=== PATIENT | female | born 1955 | race Caucasian/White ===

== ENCOUNTER 2016-08-29 19:54 | Emergency (ER) | payer OTHER ==
[~2016-08-29] VITALS: Ht 154.9 cm; Wt 111.0 kg
[~2016-08-29 19:54] MED LIST: ABILIFY5 MG PO; DUONEB 2.5-0.5 M3 ML AEROSOL; LAMISIL AT12 GM TP; LEVOFLOXACIN500 MG PO; METOPROLOL SUC100 MG PO; NICOTINE PATCH1 EAC2 TD; PREDNISONE10 MG PO; PREDNISONE20 MG PO; SEROQUEL XR150 MG PO; VENLAFAXINE HCL75 M3 PO; ZOLPIDEM TARTRA10 MG PO
[2016-08-29 20:45] LABS: HEMATOCRIT 36.5 % (36.0-46.0); MCH 33.9 PG (29.0-34.0); MCHC 34.2 G/DL (30.0-36.0); MCV 98.9 FL (83-99); MEAN PLAT.VOLUME 10.2 uM^3 (9.5-12.4); PLATELET COUNT 159 K/uL (156-360); RBC DIS.WIDTH-CV 12.7 % (11.8-14.6); RBC DIS.WIDTH-SD 45.3 % (39-53); RED BLOOD COUNT 3.69 M/uL (3.80-5.20); WHITE BLOOD COUNT 10.3 K/uL (4.1-10.2)
[2016-08-29 20:56] LABS: CHLORIDE 108 mEq/L (99-109); POTASSIUM 3.4 mEq/L (3.7-5.4); SODIUM 139 mEq/L (136-147)
[2016-08-29 20:58] LABS: GLUCOSE 100 mg/dL (70-99)
[2016-08-29 21:00] LABS: ANION GAP 7 MEQ/L (2-14)
[2016-08-29 21:02] LABS: GFR ESTIMATE (CALCULATED) 44 mL/min/
[2016-08-29 21:03] LABS: UREA NITROGEN (BUN) 24 mg/dL (9-23)
[2016-08-29 21:58] LABS: ADD MIUA? YES; BILIRUBIN NEGATIVE; BLOOD NEGATIVE; COLOR YELLOW ((YELLOW)); GLUCOSE (STRIP) NEGATIVE; KETONES NEGATIVE; LEUKOCYTES LARGE; NITRITE NEGATIVE; PROTEIN (STRIP) 30; SPECIFIC GRAVITY 1.029 (1.000-1.030); UROBILINOGEN 0.2 MG/DL (0.2-1.0)
[2016-08-29 22:07] LABS: BACTERIA RARE /HPF; EPITHELIAL CELLS 2+ /HPF; HYALINE CASTS 0-5 /LPF; MUCUS TRACE /LPF; UCUL ADDED? NO; WHITE BLOOD CELLS 20-30 /HPF (0-5)
[2016-08-29] MEDS ORDERED: CLEOCIN300 MG PO ×2 (22:10→22:37)
[2016-08-29 22:19] VITALS: BP 106/68
== END 2016-08-29 22:41 | disposition home or self-care (01) ==
LOC: EME 19:54
PROVIDERS: Emergency Medicine
DX: L03.211 Cellulitis of face (principal)
CPT/HCPCS: 70491; 80048; 81003; 83605; 85027; 87040; 99281; 99285; J2543

== ENCOUNTER 2017-04-14 15:33 | Emergency (ER) | payer OTHER ==
[~2017-04-14] VITALS: Ht 154.9 cm; Wt 100.7 kg
[~2017-04-14 15:33] MED LIST changes: +CLEOCIN300 MG PO
[2017-04-14 17:24] LABS: HEMATOCRIT 46.8 % (36.0-46.0); HEMOGLOBIN 16.2 G/DL (11.9-15.5); MCHC 34.6 G/DL (30.0-36.0); MCV 98.1 FL (83-99); PLATELET COUNT 234 K/uL (156-360); RBC DIS.WIDTH-CV 12.4 % (11.8-14.6); RBC DIS.WIDTH-SD 44.7 % (39-53); RED BLOOD COUNT 4.77 M/uL (3.80-5.20); WHITE BLOOD COUNT 15.4 K/uL (4.1-10.2)
[2017-04-14 17:34] LABS: CHLORIDE 108 mEq/L (99-109); POTASSIUM 3.9 mEq/L (3.7-5.4); SODIUM 142 mEq/L (136-147)
[2017-04-14 17:35] LABS: GLUCOSE 114 mg/dL (70-99)
[2017-04-14 17:39] LABS: CREATININE 1.3 mg/dL (0.6-1.3); GFR ESTIMATE (CALCULATED) 44 mL/min/
[2017-04-14 17:40] LABS: UREA NITROGEN (BUN) 28 mg/dL (9-23)
[2017-04-14 17:45] LABS: TROP-I INTERPRETATION NEGATIVE; TROPONIN-I < 0.01 ng/mL (0.0-0.30)
[2017-04-14 22:04] VITALS: BP 155/84
== END 2017-04-14 22:10 | disposition home or self-care (01) ==
LOC: EME 15:33
DX: J44.0 Chronic obstructive pulmonary disease with (acute) lower respiratory infection (principal); J18.9 Pneumonia, unspecified organism; E86.0 Dehydration; I10 Essential (primary) hypertension; E78.5 Hyperlipidemia, unspecified; F41.9 Anxiety disorder, unspecified; F32.9 Major depressive disorder, single episode, unspecified; F17.200 Nicotine dependence, unspecified, uncomplicated; Z88.6 Allergy status to analgesic agent
CPT/HCPCS: 71046; 71250; 80048; 83605; 84484; 85027; 87040; 87502; 93005; 99281; 99285; J7030